=== PATIENT | male | born 1995 | race Caucasian/White ===

== ENCOUNTER 2018-03-28 12:25 | Emergency (ER) | payer SELFPAY ==
[~2018-03-28] VITALS: Ht 167.6 cm; Wt 81.6 kg
[2018-03-28 12:30] VITALS: BP 128/82
--- NOTE | 2018-03-28 12:35 | NUR ---
PT AMBULATES TO BED 3
[2018-03-28] MEDS ORDERED: KETOROLAC 60 MG/2 ML VIAL IM ONE (13:10)
--- NOTE | 2018-03-28 13:33 | NUR ---
IB SELF C/O ZAHIRA HAND PAIN X 2 MONTH, + CMS, + ROM, < 3 CAP REFILL
[2018-03-28 13:44] VITALS: BP 128/82
--- NOTE | 2018-03-28 13:45 | NUR ---
Patient discharged with v/s stable. Written and verbal after care instructions given and explained. Patient alert, oriented and verbalized understanding of instructions. Ambulatory with steady gait. All questions addressed prior to discharge. ID band removed. Patient advised to follow up with PMD. Rx of TORADOL given. Patient educated on indication of medication including possible reaction and side effects. Opportunity to ask questions provided and answered.
== END 2018-03-28 13:45 | disposition home or self-care (01) ==
LOC: MED 12:25
DX: S66.812A Strain of other specified muscles, fascia and tendons at wrist and hand level, left hand, initial encounter (principal); S66.811A Strain of other specified muscles, fascia and tendons at wrist and hand level, right hand, initial encounter; X58.XXXA Exposure to other specified factors, initial encounter; Y93.89 Activity, other specified; Y92.89 Other specified places as the place of occurrence of the external cause; Y99.8 Other external cause status
CPT/HCPCS: 96372; 99283; J1885